=== PATIENT | female | born 1960 | race Caucasian/White ===

== ENCOUNTER 2021-10-01 17:17 | Emergency (ER) | payer BC ==
[~2021-10-01] VITALS: Ht 160 cm; Wt 81.6 kg
[2021-10-01] MEDS ORDERED: PREDNISONE20 MG PO (18:09)
[2021-10-01] MEDS ORDERED: AZATHIOPRINE PO (18:09)
[2021-10-01] MEDS ORDERED: MYRBETRIQ50 MG PO (18:10)
[2021-10-01] MEDS ORDERED: ESTRADIOL1 EA10 TD (18:10)
[2021-10-01] MEDS ORDERED: COZAAR25 MG PO (18:10)
[2021-10-01] MEDS ORDERED: SYNTHROID125 MCG PO (18:11)
== END 2021-10-01 20:20 | disposition home or self-care (01) ==
LOC: ED 17:17
DX: U07.1 COVID-19 (principal); Z92.22 Personal history of monoclonal drug therapy; Z90.710 Acquired absence of both cervix and uterus; Z79.899 Other long term (current) drug therapy; Z79.52 Long term (current) use of systemic steroids; Z23 Encounter for immunization
CPT/HCPCS: 99283-25; M0247